=== PATIENT | female | born 1965 | race Caucasian/White ===

== ENCOUNTER → 2018-12-12 | Outpatient (CLI) | payer BC ==
--- NOTE | 2018-12-12 14:25 | RAD ---
DATE: 12/12/2018 EXAM: MAMMO CARI SCREENING BILATERAL HISTORY: Astigmatic screening mammogram COMPARISON: 01/28/2015, 03/06/2011, 02/26/2011 This study was interpreted with the benefit of Computerized Aided Detection (CAD). Breast Density: SCATTERED The breast parenchyma shows scattered fibroglandular densities. Breast parenchyma level B. FINDINGS: Bilateral CC and MLO views of the breasts were performed. 3-D tomosynthesis was performed in CC and enema projections. Right breast: There is a 5 mm mass in the slightly upper outer right breast at posterior depth, approximately 8 cm from the nipple. Further evaluation with targeted ultrasound is recommended. Left breast: There are no suspicious microcalcifications, masses or areas of architectural distortion. IMPRESSION: 1. Incomplete right mammogram. Further evaluation with targeted ultrasound is recommended. 2. Negative left mammogram. BI-RADS CATEGORY: 0 INCOMPLETE: NEEDS ADDITIONAL IMAGING EVALUATION AND/OR PRIOR MAMMOGRAMS FOR COMPARISON. RECOMMENDED FOLLOW-UP: ADD ADDITIONAL IMAGING PQRS compliance statement: Mammography is a sensitive method for finding small breast cancers, but it does not detect them all and is not a substitute for careful clinical examination. A negative mammogram does not negate a clinically suspicious finding and should not result in delay in biopsying a clinically suspicious abnormality. "Our facility is accredited by the [employer] Mammography [employer]."
== END | disposition home or self-care (01) ==
LOC: MAMMO 07:38
PROVIDERS: ATTEND Obstetrics & Gynecology
DX: Z12.31 Encounter for screening mammogram for malignant neoplasm of breast (principal)
CPT/HCPCS: 77063; 77067

== ENCOUNTER → 2018-12-16 | Outpatient (CLI) | payer BC ==
--- NOTE | 2018-12-16 10:10 | RAD ---
Right breast ultrasound, 12/16/2018: History: Breast nodule The upper outer aspect of the right breast was carefully scanned. At the 9:30 location there is a small smooth nodule with sonographic characteristics typical of a benign intramammary lymph node. It measures 9 x 6 x 8 mm. No other solid nodule or abnormal fluid collection was identified sonographically. IMPRESSION: Small benign-appearing intramammary lymph node as noted above. This probably corresponds to the area of mammographic suspicion, however, that cannot be stated with certainty. Follow-up right 3-D mammography in 6 months and bilateral mammography at one year is suggested to confirm stability. BI-RADS 3-probably benign findings
== END | disposition home or self-care (01) ==
LOC: US 08:44
PROVIDERS: ATTEND Obstetrics & Gynecology
DX: R92.8 Other abnormal and inconclusive findings on diagnostic imaging of breast (principal)
CPT/HCPCS: 76641

== ENCOUNTER → 2020-02-26 | Outpatient (CLI) | payer BC ==
--- NOTE | 2020-02-26 12:05 | KCIC ---
Bilateral diagnostic digital mammograms with 3-D tomosynthesis: Reason for examination: Lump right breast last week causing bloody nipple discharge for 2 days. Patient has had chronic severe right nipple discharge. No left breast complaints. Comparison is made to previous studies dated 12/12/2018 and 01/28/2015. Bilateral mammograms in CC and oblique projections were obtained with 2-D imaging and 3-D tomosynthesis imaging on a Siemens Inspiration unit and reviewed on the workstation. Interpretation was made with the benefit of CAD. The skin and nipples show no abnormalities. No abnormal axillary lymph nodes are seen. The breast parenchyma shows scattered fatty and fibroglandular density. (Breast density: Category B.) There is some subtle parenchymal asymmetry at the 11:00 B position of the right breast. Further evaluation with ultrasound will follow. There continues to be a small nodular parenchymal density at the 1:00 B position of the left breast which is unchanged. There are no other new masses, suspicious calcifications or architectural distortion. Impression: Small nodular asymmetry at the 11:00 B position of the right breast. Ultrasound to follow.. BI-RAD Category 0: Incomplete. Needs additional imaging evaluation. Right breast ultrasound: Right whole breast ultrasound including evaluation of all 4 quadrants and the retroareolar and axillary regions of the right breast was performed. There appears to be some soft tissue echogenicity within a ductal structure in the retroareolar 9:00 position. This may represent a small papilloma or inspissated material in a ductal structure but there is no vascular flow. At the 11:00 position 5 cm from the nipple, there is a 1 cm hypoechoic lesion in parallel orientation which may represent a small fibroadenoma or a small focal fibrocystic changes within some dense fibroglandular tissue. No suspicious lesions are seen in the right breast. No abnormal appearing lymph nodes are seen in the right axilla. IMPRESSION: Soft tissue echogenicity within the ductal structure at the retroareolar 9:00 position which may represent inspissated material within the duct or a small papilloma. 1 cm hypoechoic nodule at the 11:00 position 5 cm from the nipple which may represent fibrocystic change or a fibroadenoma. No suspicious-appearing lesions are seen. Recommend 6 month follow-up with right breast mammograms and ultrasound. BI-RADS Category 3: Probably Benign. "Our facility is accredited by the [employer] Mammography [employer]." This patient's information has been entered into a reminder system for the patient to be notified with the results of her examination and a target date for the next mammogram. Electronically signed by: Tami Lancaster MD (02/26/2020 12:02 PM) [email or web address]
== END | disposition home or self-care (01) ==
LOC: KCIC MAMMO 10:20
PROVIDERS: ATTEND Family Medicine
DX: N63.11 Unspecified lump in the right breast, upper outer quadrant (principal); N64.52 Nipple discharge
CPT/HCPCS: 76641; 77066; G0279; 77062